=== PATIENT | female | born 1955 | race Caucasian/White ===

== ENCOUNTER 2018-01-23 13:32 | Emergency (ER) | payer OTHER ==
[~2018-01-23] VITALS: Ht 170.2 cm; Wt 44.5 kg
[2018-01-23 14:56] LABS: HEMATOCRIT 35.9 % (36.0-46.0); HEMOGLOBIN 12.4 G/DL (11.9-15.5); MCHC 34.5 G/DL (30.0-36.0); MCV 86.9 FL (83-99); PLATELET COUNT 408 K/uL (156-360); RBC DIS.WIDTH-CV 13.5 % (11.8-14.6); RBC DIS.WIDTH-SD 42.9 % (39-53); RED BLOOD COUNT 4.13 M/uL (3.80-5.20); WHITE BLOOD COUNT 21.3 K/uL (4.1-10.2)
[2018-01-23 15:03] LABS: ALBUMIN 4.1 g/dL (3.2-4.8)
[2018-01-23 15:04] LABS: APPEARANCE CLEAR ((CLEAR)); BILIRUBIN NEGATIVE; BLOOD NEGATIVE; COLOR YELLOW ((YELLOW)); GLUCOSE (STRIP) >=500; KETONES NEGATIVE; LEUKOCYTES SMALL; NITRITE NEGATIVE; PROTEIN (STRIP) 30; SPECIFIC GRAVITY 1.026 (1.000-1.030); UROBILINOGEN 0.2 MG/DL (0.2-1.0)
[2018-01-23 15:04] LABS: CHLORIDE 93 mEq/L (99-109); POTASSIUM 5.2 mEq/L (3.7-5.4); SODIUM 125 mEq/L (136-147)
[2018-01-23 15:06] LABS: TOTAL PROTEIN 7.9 g/dL (6.4-8.3)
[2018-01-23 15:08] LABS: BACTERIA RARE /HPF; EPITHELIAL CELLS RARE /HPF; MUCUS TRACE /LPF; RED BLOOD CELLS 0-5 /HPF (0-5)
[2018-01-23 15:08] LABS: TOTAL BILIRUBIN 0.3 mg/dL (0.0-1.0)
[2018-01-23 15:09] LABS: ALKALINE PHOSPHATASE 181 IU/L (3-129)
[2018-01-23 15:10] LABS: CREATININE 1.8 mg/dL (0.6-1.3); GFR ESTIMATE (CALCULATED) 31 mL/min/
[2018-01-23 15:11] LABS: AST (GOT) 9 IU/L (2-34); UREA NITROGEN (BUN) 28 mg/dL (9-23)
[2018-01-23 15:13] LABS: ALT (GPT) 11 IU/L (3-49)
[2018-01-23 15:32] LABS: GLUCOSE 720 mg/dL (70-99)
[2018-01-23] MEDS ORDERED: CREON 241 CAPSULE PO (15:41)
[2018-01-23 15:43] LABS: CARBON DIOXIDE (BICARBONATE) 23.6 MEQ/L (20-31)
[2018-01-23] MEDS ORDERED: GLUCOPHAGE1000 MG PO (15:43)
[2018-01-23] MEDS ORDERED: FOLIC ACID1 MG PO (15:44)
[2018-01-23] MEDS ORDERED: LEVOTHYROXINE25 MCG PO (15:45)
[2018-01-23] MEDS ORDERED: GLIPIZIDE5 MG PO (15:46)
[2018-01-23] MEDS ORDERED: ATORVASTATIN CA40 MG PO (15:47)
[2018-01-23] MEDS ORDERED: LISINOPRIL2.5 MG PO (15:47)
[2018-01-23] MEDS ORDERED: ZYPREXA15 MG PO (15:49)
[2018-01-23] MEDS ORDERED: LANTUS 3 M100 UNITS1 SC (15:51)
[2018-01-23 18:26] LABS: UREA NITROGEN (BUN) 25 mg/dL (9-23)
[2018-01-23 18:28] LABS: CHLORIDE 105 mEq/L (99-109); CREATININE 1.1 mg/dL (0.6-1.3); GFR ESTIMATE (CALCULATED) 54 mL/min/; GLUCOSE 270 mg/dL (70-99); POTASSIUM 3.9 mEq/L (3.7-5.4); SODIUM 133 mEq/L (136-147)
[2018-01-23] MEDS ORDERED: DEBROX15 ML BOTH EARS (19:08)
[2018-01-23] MEDS ORDERED: ZITHROMAX Z-PA250 MG PO (19:08)
[2018-01-23] MEDS ORDERED: VENTOLIN HFA18 GM IH (19:08)
[2018-01-23 20:00] VITALS: BP 121/73
== END 2018-01-23 21:02 | disposition home or self-care (01) ==
LOC: EME 13:32
PROVIDERS: Physician Assistant
DX: E11.65 Type 2 diabetes mellitus with hyperglycemia (principal); J40 Bronchitis, not specified as acute or chronic; R11.0 Nausea; R19.7 Diarrhea, unspecified; J44.9 Chronic obstructive pulmonary disease, unspecified; I10 Essential (primary) hypertension; E78.5 Hyperlipidemia, unspecified; Z79.84 Long term (current) use of oral hypoglycemic drugs; Z87.01 Personal history of pneumonia (recurrent); F17.200 Nicotine dependence, unspecified, uncomplicated
CPT/HCPCS: 71046; 80048 91; 80053; 81003; 82010; 82803; 82948; 85027; 93005; 99281; 99285; J7030

== ENCOUNTER 2018-01-27 20:53 | Inpatient (IN) | payer OTHER ==
[~2018-01-27] VITALS: Ht 170.2 cm; Wt 45.1 kg
[~2018-01-27 20:53] MED LIST: ATORVASTATIN CA40 MG PO; CREON 241 CAPSULE PO; DEBROX15 ML BOTH EARS; FOLIC ACID1 MG PO; GLIPIZIDE5 MG PO; GLUCOPHAGE1000 MG PO; LANTUS 3 M100 UNITS1 SC; LEVOTHYROXINE25 MCG PO; LISINOPRIL2.5 MG PO; VENTOLIN HFA18 GM IH; ZITHROMAX Z-PA250 MG PO; ZYPREXA15 MG PO
[2018-01-27 21:35] LABS: HEMATOCRIT 31.2 % (36.0-46.0); HEMOGLOBIN 11.2 G/DL (11.9-15.5); MCH 30.5 PG (29.0-34.0); MCHC 35.9 G/DL (30.0-36.0); PLATELET COUNT 333 K/uL (156-360); RBC DIS.WIDTH-CV 13.4 % (11.8-14.6); RBC DIS.WIDTH-SD 41.6 % (39-53); RED BLOOD COUNT 3.67 M/uL (3.80-5.20); WHITE BLOOD COUNT 11.7 K/uL (4.1-10.2)
[2018-01-27 21:46] LABS: ALBUMIN 3.7 g/dL (3.2-4.8); POTASSIUM 4.6 mEq/L (3.7-5.4)
[2018-01-27 21:48] LABS: TOTAL PROTEIN 7.1 g/dL (6.4-8.3)
[2018-01-27 21:50] LABS: TOTAL BILIRUBIN 0.3 mg/dL (0.0-1.0)
[2018-01-27 21:52] LABS: ALKALINE PHOSPHATASE 143 IU/L (3-129); CHLORIDE 91 mEq/L (99-109); CREATININE 1.7 mg/dL (0.6-1.3); GFR ESTIMATE (CALCULATED) 33 mL/min/; SODIUM 120 mEq/L (136-147)
[2018-01-27 21:53] LABS: AST (GOT) 12 IU/L (2-34); UREA NITROGEN (BUN) 24 mg/dL (9-23)
[2018-01-27 21:55] LABS: ALT (GPT) 11 IU/L (3-49); CREATINE KINASE 28 IU/L (1-294)
[2018-01-27 21:56] LABS: GLUCOSE 781 mg/dL (70-99); TROP-I INTERPRETATION NEGATIVE; TROPONIN-I 0.03 ng/mL (0.0-0.30)
[2018-01-28 00:10] LABS: GLUCOSE 643 mg/dL (70-99)
[2018-01-28 00:28] LABS: APPEARANCE CLEAR ((CLEAR)); BILIRUBIN NEGATIVE; BLOOD NEGATIVE; COLOR STRAW ((YELLOW)); GLUCOSE (STRIP) >=500; KETONES NEGATIVE; LEUKOCYTES NEGATIVE; NITRITE NEGATIVE; PROTEIN (STRIP) 30; SPECIFIC GRAVITY 1.025 (1.000-1.030); UCUL ADDED? NO; UROBILINOGEN 0.2 MG/DL (0.2-1.0)
[2018-01-28 03:24] LABS: HEMATOCRIT 28.1 % (36.0-46.0); HEMOGLOBIN 10.1 G/DL (11.9-15.5); MCH 30.1 PG (29.0-34.0); MCHC 35.9 G/DL (30.0-36.0); MCV 83.9 FL (83-99); NRBC (%) 0.2 /100 WBC (0-0); PLATELET COUNT 268 K/uL (156-360); RBC DIS.WIDTH-CV 13.2 % (11.8-14.6); RBC DIS.WIDTH-SD 39.8 % (39-53); RED BLOOD COUNT 3.35 M/uL (3.80-5.20); WHITE BLOOD COUNT 11.7 K/uL (4.1-10.2)
[2018-01-28 03:39] LABS: CREATININE 1.3 mg/dL (0.6-1.3); GFR ESTIMATE (CALCULATED) 44 mL/min/
[2018-01-28 03:40] LABS: UREA NITROGEN (BUN) 21 mg/dL (9-23)
[2018-01-28 03:44] LABS: CHLORIDE 102 mEq/L (99-109); GLUCOSE 505 mg/dL (70-99); POTASSIUM 3.6 mEq/L (3.7-5.4); SODIUM 130 mEq/L (136-147)
[2018-01-28 04:57] VITALS: BP 139/79
[2018-01-28 08:16] VITALS: BP 138/72
[2018-01-28 09:50] LABS: HEMOGLOBIN A1c (GLYCOHEMOGLOB) 17.4 % (Below 5.7)
[2018-01-28 12:32] VITALS: BP 136/71
[2018-01-28 15:36] LABS: C DIFF TOXIN POSITIVE (NEGATIVE)
[2018-01-28 15:49] VITALS: BP 135/70
[2018-01-28 20:25] VITALS: BP 149/79
[2018-01-28 23:49] VITALS: BP 152/73
[2018-01-29 06:20] LABS: HEMATOCRIT 28.4 % (36.0-46.0); HEMOGLOBIN 9.7 G/DL (11.9-15.5); MCH 29.3 PG (29.0-34.0); MCHC 34.2 G/DL (30.0-36.0); MCV 85.8 FL (83-99); PLATELET COUNT 288 K/uL (156-360); RBC DIS.WIDTH-CV 13.7 % (11.8-14.6); RED BLOOD COUNT 3.31 M/uL (3.80-5.20); WHITE BLOOD COUNT 10.1 K/uL (4.1-10.2)
[2018-01-29 06:44] LABS: CHLORIDE 103 MEQ/L (99-109); CREATININE 0.8 MG/DL (0.6-1.3); GFR ESTIMATE (CALCULATED) > 59 mL/min/; GLUCOSE 326 mg/dL (70-99); POTASSIUM 4.2 MEQ/L (3.7-5.4); SODIUM 130 MEQ/L (136-147); UREA NITROGEN (BUN) 10 mg/dL (9-23)
[2018-01-29 07:35] VITALS: BP 154/87
[2018-01-29 15:53] VITALS: BP 148/71
[2018-01-29 20:10] VITALS: BP 131/77
[2018-01-29 23:59] VITALS: BP 141/75
[2018-01-30 03:30] VITALS: BP 146/68
[2018-01-30 06:53] LABS: HEMATOCRIT 29.1 % (36.0-46.0); HEMOGLOBIN 9.9 G/DL (11.9-15.5); MCH 29.6 PG (29.0-34.0); MCV 86.9 FL (83-99); PLATELET COUNT 282 K/uL (156-360); RBC DIS.WIDTH-CV 14.1 % (11.8-14.6); RBC DIS.WIDTH-SD 44.8 % (39-53); RED BLOOD COUNT 3.35 M/uL (3.80-5.20); WHITE BLOOD COUNT 9.4 K/uL (4.1-10.2)
[2018-01-30 07:15] LABS: CHLORIDE 102 MEQ/L (99-109); CREATININE 0.8 MG/DL (0.6-1.3); GFR ESTIMATE (CALCULATED) > 59 mL/min/; GLUCOSE 219 mg/dL (70-99); SODIUM 133 MEQ/L (136-147); UREA NITROGEN (BUN) 17 mg/dL (9-23)
[2018-01-30 07:29] VITALS: BP 128/79
[2018-01-30 11:53] VITALS: BP 137/75
[2018-01-30 15:48] VITALS: BP 151/74
[2018-01-30] MEDS ORDERED: CREON 241 CAPSULE PO (16:33)
[2018-01-30] MEDS ORDERED: METFORMIN HCL1000 MG PO (16:33)
[2018-01-30] MEDS ORDERED: FOLIC ACID1 MG PO (16:34)
[2018-01-30] MEDS ORDERED: LEVOTHYROXINE200 MC1 PO (16:34)
[2018-01-30] MEDS ORDERED: GLIPIZIDE5 MG PO (16:34)
[2018-01-30] MEDS ORDERED: LISINOPRIL2.5 MG PO (16:35)
[2018-01-30] MEDS ORDERED: OLANZAPINE15 MG PO (16:35)
[2018-01-30] MEDS ORDERED: ATORVASTATIN CA40 MG PO (16:35)
[2018-01-30] MEDS ORDERED: ZANTAC300 MG PO (16:35)
[2018-01-30] MEDS ORDERED: NOVOLOG PE100 UNITS/ SC (16:36)
[2018-01-30] MEDS ORDERED: LANTUS 3 M100 UNITS1 SC (16:36)
[2018-01-30] MEDS ORDERED: VENTOLIN HFA18 GM IH (16:36)
[2018-01-30] MEDS ORDERED: COUGH SYRU100 MG/5 M PO (16:37)
[2018-01-30] MEDS ORDERED: ALKA-SELTZER P1 EAC7 PO (16:38)
[2018-01-30] MEDS ORDERED: GABAPENTIN600 MG PO (16:38)
[2018-01-30] MEDS ORDERED: TOPROL XL25 MG PO (16:38)
[2018-01-30] MEDS ORDERED: VITAMIN D31000 UNI2 PO (16:39)
[2018-01-30 23:29] VITALS: BP 155/84
[2018-01-31 05:18] LABS: CHLORIDE 103 mEq/L (99-109); POTASSIUM 4.7 mEq/L (3.7-5.4)
[2018-01-31 05:19] LABS: SODIUM 136 mEq/L (136-147)
[2018-01-31 05:24] LABS: GFR ESTIMATE (CALCULATED) > 59 mL/min/
[2018-01-31 05:25] LABS: GLUCOSE 41 mg/dL (70-99); UREA NITROGEN (BUN) 20 mg/dL (9-23)
[2018-01-31 05:26] LABS: GLUCOSE 41 mg/dL (70-99)
[2018-01-31 07:45] VITALS: BP 111/72
[2018-01-31] MEDS ORDERED: LANTUS 3 M100 UNITS1 SC (10:47)
[2018-01-31] MEDS ORDERED: VENTOLIN HFA18 GM IH (10:47)
[2018-01-31] MEDS ORDERED: VANCOCIN HCL125 MG PO (10:47)
[2018-01-31] MEDS ORDERED: ZANTAC300 MG PO (10:47)
[2018-01-31] MEDS ORDERED: OLANZAPINE15 MG PO (10:47)
[2018-01-31] MEDS ORDERED: METFORMIN HCL1000 MG PO (10:47)
[2018-01-31] MEDS ORDERED: ATORVASTATIN CA40 MG PO (10:47)
[2018-01-31] MEDS ORDERED: LEVOTHYROXINE200 MC1 PO (10:47)
[2018-01-31] MEDS ORDERED: CREON 241 CAPSULE PO (10:47)
[2018-01-31] MEDS ORDERED: NOVOLOG PE100 UNITS/ SC (10:47)
[2018-01-31] MEDS ORDERED: LISINOPRIL2.5 MG PO (10:47)
[2018-01-31] MEDS ORDERED: TRAMADOL HCL50 MG PO (10:47)
[2018-01-31] MEDS ORDERED: GLIPIZIDE5 MG PO (10:47)
[2018-01-31] MEDS ORDERED: DULERA 100 MCG/13 GM IH (10:47)
[2018-01-31] MEDS ORDERED: TOPROL XL25 MG PO (10:47)
== END 2018-01-31 13:45 | disposition home or self-care (01) | DRG 683 ==
LOC: EME 20:53 → EDOF 01-28 02:08 → 2EAST 01-28 02:08 → ENRESERV 01-28 02:09 → 2EAST 01-28 03:43
PROVIDERS: Emergency Medicine; Family Medicine; Hospitalist; Internal Medicine
DX: N17.9 Acute kidney failure, unspecified (principal); A04.72 Enterocolitis due to Clostridium difficile, not specified as recurrent; J44.1 Chronic obstructive pulmonary disease with (acute) exacerbation; E11.65 Type 2 diabetes mellitus with hyperglycemia; E11.649 Type 2 diabetes mellitus with hypoglycemia without coma; E87.2 Acidosis; E87.1 Hypo-osmolality and hyponatremia; F20.9 Schizophrenia, unspecified; H61.22 Impacted cerumen, left ear; I10 Essential (primary) hypertension; E78.5 Hyperlipidemia, unspecified; K21.9 Gastro-esophageal reflux disease without esophagitis; E03.9 Hypothyroidism, unspecified; K86.1 Other chronic pancreatitis; B19.20 Unspecified viral hepatitis C without hepatic coma; D64.9 Anemia, unspecified; F17.210 Nicotine dependence, cigarettes, uncomplicated; Z79.4 Long term (current) use of insulin; Z89.411 Acquired absence of right great toe; Z91.19 Patient's noncompliance with other medical treatment and regimen; Z86.19 Personal history of other infectious and parasitic diseases
CPT/HCPCS: 71045; 74176; 80048; 80053; 81003; 82010; 82550; 82948; 83036; 83605; 84484; 84999; 85027; 87040; 87493; 93005; 94640; 94640 76; 94760; 99202; 99281; 99284; J1644; J1815; J7030; J7042